=== PATIENT | female | born 1950 | race Hispanic/Latino ===

== ENCOUNTER 2019-12-03 21:46 | Emergency (ER) | payer OTHER ==
[2019-12-03 22:39] LABS: Urine Blood NEGATIVE (NEG); Urine Glucose NEGATIVE (NEG); Urine Protein 1+ (NEG)
[2019-12-03 23:08] LABS: Absolute Lymphocytes (CBC) 0.8 K/uL (0.7-4.9); Basophils % 0.4 % (0-1.3); Hematocrit 43.5 % (36.0-45.0); Lymphocytes % 10.7 % (15.3-44.8); MPV 8.2 fL (7.6-11.3)
[2019-12-03 23:32] LABS: ALT/SGPT 32 U/L (12-78); AST/SGOT 24 U/L (15-37); Alkaline Phosphatase 131 U/L (45-117); BUN Blood Urea Nitrogen 18 mg/dL (7-18); Bicarbonate 28 mmol/L (21-32); Bilirubin Direct < 0.1 mg/dL (0-0.2); Bilirubin Total 0.4 mg/dL (0.2-1.0); Glucose Level 143 mg/dL (74-106); Potassium 3.6 mmol/L (3.5-5.1); Protein, Total 8.8 g/dL (6.4-8.2); Sodium Level 136 mmol/L (136-145); Troponin (Emerg Dept Use Only) < 0.02 ng/mL (0.0-0.045)
[2019-12-03 23:44] LABS: Urine Amorphous Sediment 1+ /HPF (NONE SEEN); Urine Bacteria 20-50 /HPF (<20); Urine Culture Reflex Order REFLEXED; Urine Mucus 1+ /HPF (NONE SEEN); Urine RBC <5 /HPF (NONE SEEN)
[2019-12-04 00:04] LABS: Platelet Estimate ADEQ; Platelets, Giant OCC
[2019-12-04 00:05] LABS: Blood Morphology Comment NOT SEEN (NOT SEEN)
--- NOTE | 2019-12-04 00:50 | ER ---
Nurse's Notes [facility] Name: Qing Luo Age: 69 yrs Sex: Female : 1950 Arrival Date: 12/03/2019 Time: 21:50 Bed 4 Private MD: Diagnosis: Hypertensive heart disease;Urinary tract infection, site not specified Presentation: 12/02 22:13 Chief complaint: Patient states: BP 181/104 today. States she has abdominal fullness ll1 with nausea today. States she weaned herself off her medications in July, only takes baby aspirin for her BP. 2-3 soft stools today, no fever. Coronavirus screen: Client denies travel out of the [place] in the last 14 days. At this time, the client does not indicate any symptoms associated with coronavirus-19. Ebola Screen: Patient denies travel to an Ebola-affected area in the 21 days before illness onset. Initial Sepsis Screen: Does the patient meet any 2 criteria? No. Patient's initial sepsis screen is negative. Risk Assessment: Do you want to hurt yourself or someone else? Patient reports no desire to harm self or others. Onset of symptoms was December 03, 2019. 22:13 Method Of Arrival: Ambulatory ll1 22:13 Acuity: CIRILO 3 ll1 22:15 Initial Sepsis Screen: Does the patient have a suspected source of infection? No. rr5 Patient's initial sepsis screen is negative. Historical: - Allergies: 22:17 TETRACYCLINES; ll1 - Home Meds: 23:12 Aspirin Oral [Active]; rr5 - PMHx: 23:12 Hypertension; rr5 - PSHx: 22:17 Bladder suspension; ll1 23:12 CABG; rr5 - Social history:: Patient/guardian denies using street drugs, Smoking status: unknown. Screenin:43 Abuse screen: Denies threats or abuse. Denies injuries from another. Nutritional rr5 screening: No deficits noted. Tuberculosis screening: No symptoms or risk factors identified. Fall Risk IV access (20 points). Total Betts Fall Scale indicates No Risk (0-24 pts). Assessment: 22:20 General: Appears in no apparent distress. uncomfortable, Behavior is calm, cooperative, rr5 appropriate for age. 22:20 Pain: Complains of pain in abdomen. Neuro: Level of Consciousness is awake, alert, rr5 obeys commands, Oriented to person, place, time, situation. Cardiovascular: Reports high BP Capillary refill < 3 seconds Patient's skin is warm and dry. Respiratory: Airway is patent Respiratory effort is even, unlabored, Respiratory pattern is regular, symmetrical. GI: Abdomen is round Reports nausea, fullness. : No signs and/or symptoms were reported regarding the genitourinary system. EENT: No signs and/or symptoms were reported regarding the EENT system. Derm: Skin is intact, is healthy with good turgor, Skin temperature is warm. Musculoskeletal: Capillary refill < 3 seconds. 23:25 Reassessment: Patient appears in no apparent distress at this time. No changes from rr5 previously documented assessment. Patient is alert, oriented x 3, equal unlabored respirations, skin warm/dry/pink. awaiting for results. 12/03 00:50 Reassessment: Patient appears in no apparent distress at this time. Patient is alert, rr5 oriented x 3, equal unlabored respirations, skin warm/dry/pink. BP 179/101 mmHg rechecked, ED provider aware with order made and carried out. 01:16 Reassessment: Patient appears in no apparent distress at this time. Patient is alert, rr5 oriented x 3, equal unlabored respirations, skin warm/dry/pink. discharge instruction given and explained without complaints made. awaiting for her ride home. Vital Signs: 12/02 22:13 BP 177 / 99; Pulse 83; Resp 17; Temp 97.7; Pulse Ox 97% ; Pain 0/10; ll1 23:21 BP 165 / 97; Pulse 81; Resp 19; Pulse Ox 99% ; rr5 12/03 00:00 BP 169 / 95; Pulse 79; Resp 19; Pulse Ox 100% ; rr5 00:50 BP 179 / 101; Pulse 85; Resp 17; Pulse Ox 99% on R/A; rr5 01:20 BP 157 / 86; Pulse 75; Resp 16; Pulse Ox 100% ; rr5 ED Course: 12/02 21:50 Patient arrived in ED. cl3 22:06 Pradeep Win PA is PHCP. cp 22:06 Barrett Valdez MD is Attending Physician. cp 22:17 Triage completed. ll1 22:17 Arm band placed on Patient placed in an exam room, on a stretcher. ll1 22:20 Patient has correct armband on for positive identification. Placed in gown. Bed in low rr5 position. Call light in reach. Side rails up X2. color television console monitor on. Pulse ox on. NIBP on. 22:20 Urine collected: clean catch specimen, clear. rr5 22:23 Marcos Medeiros, RN is Primary Nurse. rr5 22:40 EKG done, by ED staff, reviewed by Pradeep OBRIEN. rr5 22:45 CT Head Brain wo Cont In Process Unspecified. EDMS 22:45 Inserted saline lock: 20 gauge in right antecubital area, using aseptic technique. rr5 ,using aseptic technique. inserted by [facility] Blood collected. 08 01:16 No provider procedures requiring assistance completed. IV discontinued, intact, rr5 bleeding controlled, No redness/swelling at site. Pressure dressing applied. Administered Medications: 00:47 Drug: Rocephin 1 grams Route: IV; Rate: calculated rate; Site: right antecubital; rr5 01:15 Follow up: Response: No adverse reaction; IV Status: Completed infusion; IV Intake: [id number] 00:50 Drug: hydrALAZINE 5 mg Route: IV; Rate: per protocol; Site: right antecubital; rr5 01:21 Follow up: Response: No adverse reaction; IV Status: Completed infusion rr5 Intake: 01:15 IV: 10ml; Total: 10ml. rr5 Outcome: 00:50 Discharge ordered by MD. cp 01:20 Discharged to home ambulatory. rr5 01:20 Condition: stable 01:20 Discharge instructions given to patient, Instructed on discharge instructions, follow up and referral plans. medication usage, Demonstrated understanding of instructions, follow-up care, medications, Prescriptions given X 1. 01:21 Patient left the ED. rr5 Signatures: Dispatcher [employer] EDNC Pradeep Win PA PA cp Roque, Raymond, RN RN rr5 Dallin Acharya 3 Ted Acharya RN RN ll1 Corrections: (The following items were deleted from the chart) 12/02 23:09 22:40 EKG done, by ED staff, rr5 rr5
--- NOTE | 2019-12-04 00:51 | EDPHYS ---
Physician Documentation [facility] Name: Qing Luo Age: 69 yrs Sex: Female : 1950 Arrival Date: 12/03/2019 Time: 21:50 Bed 4 Private MD: ED Physician Barrett Valdez HPI: 12/02 22:17 This 69 yrs old Female presents to ER via Ambulatory with complaints of High cp Blood Pressure, Nausea. 22:17 The patient has elevated blood pressure and discovered this at home, with a home cp device. Onset: The symptoms/episode began/occurred today. Associated signs and symptoms: Pertinent positives: headache, nausea, Pertinent negatives: chest pain, vomiting. Severity of symptoms: At its worst the blood pressure was 181 mm Hg, in the emergency department the blood pressure is improved, mildly. 22:17 Patient reports to weaning herself off her prescribed medications, which include cp hypertension medication, due to side effects. Patient reports taking aspirin intermittently. Historical: - Allergies: 22:17 TETRACYCLINES; ll1 - Home Meds: 23:12 Aspirin Oral [Active]; rr5 - PMHx: 23:12 Hypertension; rr5 - PSHx: 22:17 Bladder suspension; ll1 23:12 CABG; rr5 - Social history:: Patient/guardian denies using street drugs, Smoking status: unknown. ROS: 22:20 Constitutional: Negative for body aches, chills, fever, poor PO intake. cp 22:20 Eyes: Negative for injury, pain, redness, and discharge. cp 22:20 ENT: Negative for ear pain, sore throat, difficulty swallowing, difficulty handling secretions. 22:20 Cardiovascular: Negative for chest pain, edema, palpitations. 22:20 Respiratory: Negative for cough, shortness of breath, wheezing. 22:20 Abdomen/GI: Negative for abdominal pain, nausea, vomiting, and diarrhea, constipation. 22:20 Skin: Negative for rash. 22:20 Neuro: Positive for headache, Negative for altered mental status, numbness, tingling, weakness. 22:20 All other systems are negative. Exam: 22:25 Constitutional: The patient appears in no acute distress, alert, awake, cp non-diaphoretic, non-toxic, well developed, well nourished. 22:25 Head/Face: Normocephalic, atraumatic. cp 22:25 Eyes: Periorbital structures: appear normal, Conjunctiva: normal, no exudate, no cp injection, Lids and lashes: appear normal, bilaterally. 22:25 ENT: External ear(s): are unremarkable, Nose: is normal, Mouth: is normal, Posterior cp pharynx: Airway: no evidence of obstruction, patent. 22:25 Chest/axilla: Inspection: normal, Palpation: is normal, no crepitus, no tenderness. 22:25 Cardiovascular: Rate: normal, Rhythm: regular, Heart sounds: murmur, not appreciated, Edema: is not appreciated, JVD: is not appreciated. 22:25 Respiratory: the patient does not display signs of respiratory distress, Respirations: normal, no use of accessory muscles, no retractions, labored breathing, is not present, Breath sounds: are clear throughout, no decreased breath sounds, no stridor, no wheezing. 22:25 Abdomen/GI: Inspection: abdomen appears normal, Palpation: abdomen is soft and non-tender, in all quadrants. 22:25 Neuro: Orientation: to person, place \T\ time. Mentation: is normal, Cerebellar function: is grossly normal, Motor: moves all fours, strength is normal, Sensation: is normal. 23:04 ECG was reviewed by the Attending Physician. Vital Signs: 22:13 BP 177 / 99; Pulse 83; Resp 17; Temp 97.7; Pulse Ox 97% ; Pain 0/10; ll1 23:21 BP 165 / 97; Pulse 81; Resp 19; Pulse Ox 99% ; rr5 12/03 00:00 BP 169 / 95; Pulse 79; Resp 19; Pulse Ox 100% ; rr5 00:50 BP 179 / 101; Pulse 85; Resp 17; Pulse Ox 99% on R/A; rr5 01:20 BP 157 / 86; Pulse 75; Resp 16; Pulse Ox 100% ; rr5 MDM: 12/02 22:20 Patient medically screened. 12/03 00:50 Data reviewed: vital signs, nurses notes, lab test result(s), EKG, radiologic studies, cp CT scan. 12/02 22:19 Order name: Basic Metabolic Panel; Complete Time: 00:28 cp 12/03 00:28 Interpretation: Normal except: GLUC 143; GFR 69. cp 12/02 22:19 Order name: CBC with Diff; Complete Time: 00:28 cp 12/03 00:28 Interpretation: Normal except: JAYDEN% 86.4; LYM% 10.7; MN% 2.4. cp 12/02 22:19 Order name: LFT's; Complete Time: 00:28 cp 12/02 22:19 Order name: Troponin (emerg Dept Use Only); Complete Time: 00:28 cp 12/02 22:19 Order name: Urine Microscopic Only; Complete Time: 00:28 cp 12/03 00:29 Interpretation: Normal except: UWBC 10-20; UBACT 20-50; SQEPI 5-10. cp 12/02 22:34 Order name: Urine Dipstick--Ancillary (enter results); Complete Time: 00:28 bb 12/02 22:19 Order name: EKG; Complete Time: 22:20 cp 12/02 22:19 Order name: Cardiac monitoring; Complete Time: 23:21 cp 12/02 22:19 Order name: EKG - Nurse/Tech; Complete Time: 23:21 cp 12/02 22:19 Order name: CT Head Brain wo Cont cp 12/02 23:12 Order name: Manual Differential; Complete Time: 00:28 EDMS 12/03 00:36 Interpretation: Normal except: BANDS [F] 3; LYM 13. cp 12/02 23:45 Order name: Urine Culture EDGA 12/02 22:19 Order name: IV Saline Lock; Complete Time: 23:21 cp 12/02 22:19 Order name: Labs collected and sent; Complete Time: 23:21 cp 12/02 22:19 Order name: O2 Per Protocol; Complete Time: 23:21 cp 12/02 22:19 Order name: O2 Sat Monitoring; Complete Time: 23:21 cp 12/02 22:19 Order name: Urine Dipstick-Ancillary (obtain specimen); Complete Time: 22:33 cp EC/01 23:04 Rate is 80 beats/min. Rhythm is regular. CA interval is normal. QRS interval is normal. cp QT interval is normal. T waves are Inverted in leads I, aVL. Interpreted by me. Reviewed by me. Administered Medications: 12/03 00:47 Drug: Rocephin 1 grams Route: IV; Rate: calculated rate; Site: right antecubital; rr5 01:15 Follow up: Response: No adverse reaction; IV Status: Completed infusion; IV Intake: [id number] 00:50 Drug: hydrALAZINE 5 mg Route: IV; Rate: per protocol; Site: right antecubital; rr5 01:21 Follow up: Response: No adverse reaction; IV Status: Completed infusion rr5 Disposition: 12/04/19 00:50 Discharged to Home. Impression: Hypertensive heart disease, Urinary tract infection, site not specified. - Condition is Stable. - Discharge Instructions: Hypertension, Urinary Tract Infection, Adult, Managing Your Hypertension. - Prescriptions for Bactrim DS 800- 160 mg Oral Tablet - take 1 tablet by ORAL route every 12 hours for 5 days; 10 tablet. - Medication Reconciliation Form, Thank You Letter, Antibiotic Education, Prescription Opioid Use form. - Follow up: Private Physician; When: 2 - 3 days; Reason: Recheck today's complaints. - Problem is new. - Symptoms have improved. Addendum: 12/05/2019 04:31 Co-signature as Attending Physician, Barrett Valdez MD I agree with the assessment and t w4 plan of care. Signatures: Dispatcher [employer] EDMS Pradeep Win PA PA cp Wadley, Terrence, MD MD tw4 Marcos Medeiros RN RN rr5 Ted Acharya RN RN ll1 Corrections: (The following items were deleted from the chart) 12/03 01:21 00:50 12/04/2019 00:50 Discharged to Home. Impression: Hypertensive heart disease; rr5 Urinary tract infection, site not specified. Condition is Stable. Forms are Medication Reconciliation Form, Thank You Letter, Antibiotic Education, Prescription Opioid Use. Follow up: Private Physician; When: 2 - 3 days; Reason: Recheck today's complaints. Problem is new. Symptoms have improved. cp
[2019-12-04] MEDS ORDERED: CEFTRIAXONE/SWI 1gm 1 GM/10 ML SYR ONE (00:58)
[2019-12-04] MEDS ORDERED: HYDRALAZINE HCL 20 MG/ML VIAL ONE (01:16)
[2019-12-04 01:29] VITALS: TEMP 97.7
[2019-12-04 01:34] VITALS: BP 157/86; O2SAT 100
--- NOTE | 2019-12-05 11:07 | RAD REPORT ---
EXAM DESCRIPTION: CT - Head Brain Wo Cont - 12/04/2019 3:18 am CLINICAL HISTORY: 69 years Female HEADACHE COMPARISON: None TECHNIQUE: Images were obtained in axial, sagittal, and coronal planes. This exam was performed according to our departmental dose-optimization program which includes use of Automated Exposure Control, adjustment of the mA and/or kV according to patient size and/or use o f iterative reconstruction technique. FINDINGS: Ventricular system appears normal. No abnormal areas of increased attenuation are seen involving the brain parenchyma. No extra-axial fl uid collections noted. No evidence for skull fracture. Symmetric aeration mastoid air cells bilaterally. Unremarkable parana micki sinuses. IMPRESSION: No acute intracranial abnormality. No evidence for hemorrhage, mass lesion, or large acu te infarction. Electronically signed by: Jaycee Nice MD 12/03/2019 10:54 PM CDT Due to temporary technical issues with the PACS/Fluency reporting system, reports are being signed by the in house radiologist without review as a courtesy to ensure prompt reporting. The interpreting r adiologist is fully responsible for the content of the report.
== END 2019-12-04 01:21 | disposition home or self-care (01) ==
LOC: ER 21:46
DX: I11.9 Hypertensive heart disease without heart failure (principal); N39.0 Urinary tract infection, site not specified; I10 Essential (primary) hypertension; Z79.82 Long term (current) use of aspirin; Z88.1 Allergy status to other antibiotic agents; Z95.1 Presence of aortocoronary bypass graft
CPT/HCPCS: 93005; 87088; 85025; 87086; 80048; 36415; 80076; 84484; 70450; J0360; J0696; 81003; 81015; 87077; 87186; 96365; 99285